=== PATIENT | female | born 1945 | race Caucasian/White ===

== ENCOUNTER 2022-05-26 12:50 | Emergency (ER) | payer BC, MEDICARE, OTHER ==
[~2022-05-26] VITALS: Ht 180.3 cm; Wt 95.7 kg
--- NOTE | 2022-05-26 12:55 | NUR ---
RECEIVED PT 76 YRS FEMAL CAME FROM HOME C/O GENRALIZED WEEKNESS AND FANTING NO WEEKNEES NO DIFFICITY
--- NOTE | 2022-05-26 13:05 | NUR ---
INSERTED ANGO CATHETER G 18 ON RT AC BLOOD SDROW AND SENT TO LAB
[2022-05-26 13:27] LABS: BASOPHILS % (AUTO) 0.2 % (0.0-2.0); EOSINOPHILS % (AUTO) 0.3 % (0.0-6.0); HEMATOCRIT 39 % (33-45); HEMOGLOBIN 13.3 g/dL (11.5-14.8); LYMPHOCYTES # (AUTO) 0.7 K/uL (0.8-4.8); LYMPHOCYTES % (AUTO) 5.5 % (20.0-44.0); MEAN CORPUSCULAR HGB CONC 34 g/dl (31.0-36.0); MEAN CORPUSCULAR VOLUME 88 fL (82-100); MONOCYTES # (AUTO) 0.6 K/uL (0.1-1.30); MONOCYTES % (AUTO) 4.5 % (2.0-12.0); NEUTROPHILS # (AUTO) 12.1 K/uL (1.8-8.9); NEUTROPHILS % (AUTO) 89.5 % (43.0-81.0); PLATELET COUNT (AUTO) 276 K/uL (150-450); RED BLOOD CELL COUNT(AUTO) 4.48 MIL/uL (4.0-5.2); WHITE BLOOD COUNT (AUTO) 13.5 K/uL (4.3-11.0)
[2022-05-26] MEDS ORDERED: IV NS 0.9% 500 ML BAG IV ONE (13:30)
--- NOTE | 2022-05-26 13:30 | NUR ---
EKG DONE AT BVED SIDE
[2022-05-26 13:48] LABS: CALCIUM, SERUM 8.9 mg/dL (8.5-10.1); CARBON DIOXIDE 28 mmol/L (21-32); CHLORIDE 104 mmol/L (98-107); GLUCOSE 135 mg/dL (74-106); POTASSIUM 3.7 mmol/L (3.5-5.1); SODIUM SERUM 137 mmol/L (136-145); UREA NITROGEN, BLOOD 17 mg/dL (7-18)
[2022-05-26 13:53] LABS: ALANINE AMINOTRANSFERASE 24 U/L (12-78); ALBUMIN 3.3 g/dL (3.4-5.0); ALKALINE PHOSPHATASE 78 U/L (46-116); ASPARTATE AMINOTRANSFERASE 11 U/L (15-37); BILIRUBIN,DIRECT 0.1 mg/dL (0.0-0.2); BILIRUBIN,TOTAL 0.4 mg/dL (0.2-1.0)
--- NOTE | 2022-05-26 14:06 | NUR ---
COVID SWAB DONE SENT TO LAB
--- NOTE | 2022-05-26 15:03 | NUR ---
UA SENT TO LAB
--- NOTE | 2022-05-26 16:05 | NUR ---
LUNCH OPTAINDED EAT WILL TOLORATED WILL
[2022-05-26 16:30] LABS: BILIRUBIN,URINE NEGATIVE (NEGATIVE); COLOR,URINE YELLOW (YELLOW); LEUKOCYTE ESTERASE ,URINE SMALL (NEGATIVE); NITRITE, URINE NEGATIVE (NEGATIVE); PROTEIN,URINE NEGATIVE (NEGATIVE); UGLUCOSE NEGATIVE (NEGATIVE); UROBILINOGEN,URINE 0.2 EU/dL (0.2)
[2022-05-26 17:47] LABS: BACTERIA,URINE 1+ /HPF (None Seen)
--- NOTE | 2022-05-26 18:10 | NUR ---
WATING FOR UA RESULT
[2022-05-26] MEDS ORDERED: NITR100C6 PO (18:50)
--- NOTE | 2022-05-26 18:55 | NUR ---
DR. GIPSON SPOOK WITH PT ABOUT LAB RESULT AND PLAN OF CARE
--- NOTE | 2022-05-26 19:00 | NUR ---
D/C HL DONE D/C INSTRACTION GIVEN TO PAT FULLY AND VERBLIZED UNDERSTOOD D/C HOME STABLE VS
[2022-05-26 19:16] VITALS: BP 134/61
== END 2022-05-26 19:19 | disposition home or self-care (01) ==
LOC: ER 12:56
DX: R55 Syncope and collapse (principal); R53.83 Other fatigue; Z20.822 Contact with and (suspected) exposure to COVID-19; D72.829 Elevated white blood cell count, unspecified; Z91.041 Radiographic dye allergy status; M35.3 Polymyalgia rheumatica; Z90.49 Acquired absence of other specified parts of digestive tract; E07.9 Disorder of thyroid, unspecified; R30.0 Dysuria
CPT/HCPCS: 99285; 96360; 71045; 87426; 93005; 85025; 80048; 87077; 87086; 80076; 87186; 81001; 36415; 84484; 85730; 83880; J7040; C9803

== ENCOUNTER 2023-03-23 23:41 | Emergency (ER) | payer BC ==
[~2023-03-23] VITALS: Ht 180.3 cm; Wt 90.7 kg
[~2023-03-23 23:41] MED LIST: NITR100C6 PO
--- NOTE | 2023-03-24 00:30 | NUR ---
BIBDAUGHTER FOR DIZZY. PT IS ALERT AND ORIENTED. RR EVEN AND NON LABORED. CONNECTED TO POX AND HEART MONITOR. VSS. FAMILY AT BEDSIDE
--- NOTE | 2023-03-24 01:10 | NUR ---
URINE SAMPLE SENT TO LAB
--- NOTE | 2023-03-24 01:38 | NUR ---
PT REFUSED CT SCAN, MD AWARE
--- NOTE | 2023-03-24 01:38 | NUR ---
MANPREET ESTABLISHED , NUHA
--- NOTE | 2023-03-24 01:39 | NUR ---
BLOOD COLLECTED AND SENT TO LAB
--- NOTE | 2023-03-24 01:50 | NUR ---
XRAY AT BEDSIDE
[2023-03-24 01:59] LABS: BASOPHILS # (AUTO) 0.1 K/uL (0.0-0.2); BASOPHILS % (AUTO) 0.5 % (0.0-2.0); EOSINOPHILS % (AUTO) 0.2 % (0.0-6.0); HEMATOCRIT 41 % (33-45); HEMOGLOBIN 13.6 g/dL (11.5-14.8); LYMPHOCYTES # (AUTO) 1.7 K/uL (0.8-4.8); LYMPHOCYTES % (AUTO) 15.2 % (20.0-44.0); MEAN CORPUSCULAR HGB CONC 33 g/dl (31.0-36.0); MEAN CORPUSCULAR VOLUME 90 fL (82-100); MONOCYTES # (AUTO) 0.6 K/uL (0.1-1.30); NEUTROPHILS % (AUTO) 79.1 % (43.0-81.0); PLATELET COUNT (AUTO) 250 K/uL (150-450); RED BLOOD CELL COUNT(AUTO) 4.54 MIL/uL (4.0-5.2); WHITE BLOOD COUNT (AUTO) 11.3 K/uL (4.3-11.0)
[2023-03-24 02:03] LABS: BILIRUBIN,URINE NEGATIVE (NEGATIVE); COLOR,URINE YELLOW (YELLOW); LEUKOCYTE ESTERASE ,URINE NEGATIVE (NEGATIVE); NITRITE, URINE NEGATIVE (NEGATIVE); PH,URINE 6.5 (5.0-8.0); PROTEIN,URINE NEGATIVE (NEGATIVE); UGLUCOSE NEGATIVE (NEGATIVE); UROBILINOGEN,URINE 0.2 EU/dL (0.2)
[2023-03-24 02:11] LABS: ALANINE AMINOTRANSFERASE 26 U/L (12-78); ALBUMIN 3.6 g/dL (3.4-5.0); ALKALINE PHOSPHATASE 111 U/L (46-116); ASPARTATE AMINOTRANSFERASE 10 U/L (15-37); BILIRUBIN,DIRECT 0.1 mg/dL (0.0-0.2); BILIRUBIN,TOTAL 0.4 mg/dL (0.2-1.0); CALCIUM, SERUM 9.7 mg/dL (8.5-10.1); CARBON DIOXIDE 25 mmol/L (21-32); CHLORIDE 107 mmol/L (98-107); CREATININE 0.8 mg/dL (0.6-1.3); GLUCOSE 118 mg/dL (74-106); POTASSIUM 4.2 mmol/L (3.5-5.1); SODIUM SERUM 139 mmol/L (136-145); TOTAL PROTEIN, SERUM 7.5 g/dL (6.4-8.2); UREA NITROGEN, BLOOD 14 mg/dL (7-18)
[2023-03-24 02:24] LABS: BACTERIA,URINE None seen /HPF (None Seen); RBC,URINE 0-2 /HPF (0-2); WBC,URINE NONE SEEN /HPF (0-3)
--- NOTE | 2023-03-24 04:41 | NUR ---
Patient discharged to home in stable condition. Written and verbal after care instructions given. Patient verbalizes understanding of instruction.
--- NOTE | 2023-03-24 04:41 | NUR ---
IV removed. Catheter intact and site benign. Pressure and 4x4 applied to site. No bleeding noted.
[2023-03-24 07:08] VITALS: BP 139/78
== END 2023-03-24 07:09 | disposition home or self-care (01) ==
LOC: ER 23:55
DX: R42 Dizziness and giddiness (principal); I10 Essential (primary) hypertension; Z79.899 Other long term (current) drug therapy; Z90.49 Acquired absence of other specified parts of digestive tract; Z91.040 Latex allergy status; Z88.5 Allergy status to narcotic agent
CPT/HCPCS: 36415; 71045-TC; 80048-TC; 80076-TC; 81001; 84484-TC; 85025-TC; 85730-TC